=== PATIENT | female | born 1985 | race African-American/Black ===

== ENCOUNTER 2022-01-21 15:19 | Emergency (ER) | payer MEDICAID ==
[~2022-01-21] VITALS: Ht 177.8 cm; Wt 68.0 kg
[2022-01-21 15:33] VITALS: BP 126/73
== END 2022-01-21 17:17 | disposition left against medical advice (07) ==
LOC: ER 15:19
DX: Z20.822 Contact with and (suspected) exposure to COVID-19 (principal)
CPT/HCPCS: 87426; 99283; C9803